=== PATIENT | male | born 1975 | race Caucasian/White ===

== ENCOUNTER 2019-03-06 20:48 | Emergency (ER) | payer OTHER ==
[~2019-03-06] VITALS: Ht 175.3 cm; Wt 140.6 kg
--- OUTSIDE RECORDS SUMMARY | 2019-03-06 20:56 | XMS REPORT | Continuity of Care Document ---
Author Organization Unknown Address Unknown Allergies Active Description Code Type Severity Reaction Onset Reported/Identified Relationship to Patient Clinical Status Yes DICLOFENAC SODIUM 08788 DRUG N/ A Other 06/11/2016 06/11/2016 Medications Medication Packaging Start Date Stop Date Route Dosage Sig KETOROLAC TROMETHAMINE 30 MG/ML IJ SOLN 06/11/2016 06/16/2016 Intravenous 15 ONCE Problems Date Dx Coded Attending Type Code Diagnosis Diagnosed By 06/11/2016 SHAI PUTNAM V [id number] Chest Pain SHAI PUTNAM 06/11/2016 SHAI PUTNAM V R07.81 Pleurodynia SHAI PUTNAM Procedures There is no data. Results Test Result Range CBC WITH AUTO DIFFERENTIAL - 06/11/16 16:25 BASOPHILS RELATIVE PERCENT 0.7 % 0.0-2.5 EOSINOPHILS RELATIVE PERCENT 1.1 % <=5.0 HEMATOCRIT 42.7 % 38.8-50.0 HEMOGLOBIN 14.3 g/dL 13.5-17.5 LYMPHOCYTES RELATIVE PERCENT 26.3 % 22.0-49.0 MEAN CORPUSCULAR HEMOGLOBIN 28.5 pg 26.0-34.0 MEAN CORPUSCULAR HEMOGLOBIN CONC 33.4 g/dL 31.0-37.0 MEAN CORPUSCULAR VOLUME 85.4 fL 81.2-95.1 MONOCYTES RELATIVE PERCENT 6.3 % 2.0-9.0 NEUTROPHILS RELATIVE PERCENT 65.6 % 40.0-75.0 PLATELET COUNT 264 10E9/L 150-450 RED BLOOD CELL COUNT 4.99 10E12/L 4.32-5.72 RED CELL DISTRIBUTION WIDTH 12.9 % 11.8-15.6 [id number] 8.9 10E9/L 3.5-10.5 [id number] 2.30 10E9/L 0.90-2.90 5510069 0.60 10E9/L 0.30-0.90 5521736 0.10 10E9/L 0.05-0.50 [id number] 5.80 10E9/L 1.70-7.00 4366776 0.10 10E9/L 0.00-0.30 COMPREHENSIVE METABOLIC PANEL - 06/11/16 16:25 ALBUMIN 4.2 g/dL 3.4-4.8 ALKALINE PHOSPHATASE 91 U/L 29-122 ALT 31 U/L 10-46 AST 18 U/L 16-37 BILIRUBIN,TOTAL 0.4 mg/dL 0.2-1.3 BUN BLOOD 15 mg/dL 6-20 CALCIUM 9.8 mg/dL 8.7-10.5 CHLORIDE 107 mmol/L 99-111 CO2 30 mmol/L 20-36 CREATININE 0.90 mg/dL 0.60-1.20 EGFR > mL/min >59 GLUCOSE 289 mg/dL 74-106 POTASSIUM 4.3 mmol/L 3.6-4.9 PROTEIN TOTAL 7.0 g/dL 6.4-8.3 SODIUM 141 mmol/L 136-145 CK TOTAL AND CKMB - 06/11/16 16:25 CKMB/CPK INDEX 1.4 <=5.0 CPK 223 U/L 38-174 CPK-MB 3.1 ng/mL 0.0-4.0 TROPONIN I - 06/11/16 16:25 TROPONIN I < ng/mL 0.000-0.040 EXTRA LIGHT BLUE TOP - 06/11/16 16:25 1324 Extra tube in lab Encounters ACCT No. Visit Date/Time Discharge Status Pt. Type Provider Facility Loc./Unit Complaint [id number] 06/11/2016 17:10:43 06/11/2016 19:06:00 DIS Emergency LOKI-SHAI PALACIOS [facility] EMD [id number] 06/11/2016 17:44:11 Document Registration
--- NOTE | 2019-03-06 21:04 | ED Chest Pain ---
General Stated Complaint: CHEST REYNA Source: patient, RN notes reviewed Exam Limitations: no limitations History of Present Illness Date Seen by Provider: March 06, 2019 Time Seen by Provider: 21:04 Allergies and Home Medications Allergies Uncoded Allergies: PENICILLIN (Allergy, Unknown, 03/06/19) Home Medications No Active Prescriptions or Reported Meds Past [id number]-Gqqidb-[id number] Hx Patient Social History Recent Foreign Travel: No Contact w/Someone Who Travel: No Physical Exam Vital Signs Vital Signs - First Documented 03/06/19 21:07 Temp 98.3 Pulse 88 Resp 15 B/P (MAP) 160/92 (114) Pulse Ox 96 O2 Delivery Room Air Capillary Refill : Height, Weight, BMI Height: '" Weight: lbs. oz. kg; BMI Method: Progress/Results/Core Measures Results/Orders Lab Results Laboratory Tests Test 03/06/19 21:10 03/06/19 23:20 Range/Units White Blood Count 7.3 4.3-11.0 10^3/uL Red Blood Count 5.25 4.35-5.85 10^6/uL Hemoglobin 15.3 13.3-17.7 G/DL Hematocrit 45 40-54 % Mean Corpuscular Volume 85 80-99 FL Mean Corpuscular Hemoglobin 29 25-34 PG Mean Corpuscular Hemoglobin Concent 34 32-36 G/DL Red Cell Distribution Width 12.5 10.0-14.5 % Platelet Count 254 130-400 10^3/uL Mean Platelet Volume 10.9 H 7.4-10.4 FL Neutrophils (%) (Auto) 58 42-75 % Lymphocytes (%) (Auto) 34 12-44 % Monocytes (%) (Auto) 6 0-12 % Eosinophils (%) (Auto) 1 0-10 % Basophils (%) (Auto) 1 0-10 % Neutrophils # (Auto) 4.2 1.8-7.8 X 10^3 Lymphocytes # (Auto) 2.5 1.0-4.0 X 10^3 Monocytes # (Auto) 0.5 0.0-1.0 X 10^3 Eosinophils # (Auto) 0.1 0.0-0.3 10^3/uL Basophils # (Auto) 0.1 0.0-0.1 10^3/uL Sodium Level 138 135-145 MMOL/L Potassium Level 4.1 3.6-5.0 MMOL/L Chloride Level 101 98-107 MMOL/L Carbon Dioxide Level 21 21-32 MMOL/L Anion Gap 16 H 5-14 MMOL/L Blood Urea Nitrogen 9 7-18 MG/DL Creatinine 0.63 0.60-1.30 MG/DL Estimat Glomerular Filtration Rate > 60 BUN/Creatinine Ratio 14 Glucose Level 310 H 70-105 MG/DL Calcium Level 9.4 8.5-10.1 MG/DL Corrected Calcium 9.4 8.5-10.1 MG/DL Magnesium Level 2.1 1.8-2.4 MG/DL Total Bilirubin 0.5 0.1-1.0 MG/DL Aspartate Amino Transf (AST/SGOT) 17 5-34 U/L Alanine Aminotransferase (ALT/SGPT) 28 0-55 U/L Alkaline Phosphatase 82 40-136 U/L Troponin T 9 < 6 <=15 NG/L Total Protein 7.3 6.4-8.2 GM/DL Albumin 4.0 3.2-4.5 GM/DL Lipase 19 8-78 U/L My Orders Orders - TOMI ISRAEL DO Cbc With Automated Diff (03/06/19 21:07) Magnesium (03/06/19 21:07) Chest 1 View Ap/Pa Only (03/06/19 21:07) Ekg Tracing (03/06/19 21:07) Comprehensive Metabolic Panel (03/06/19 21:07) Monitor-Rhythm Ecg Trace Only (03/06/19 21:07) Ed Iv/Invasive Line Start (03/06/19 21:07) Lipase (03/06/19 21:07) Troponin T (03/06/19 21:07) Hemoglobin A1c (03/06/19 21:56) Famotidine Tablet (Pepcid Tablet) (03/06/19 22:15) Ketorolac Injection (Toradol Injection) (03/06/19 22:15) Troponin T (03/06/19 23:10) Ketorolac Injection (Toradol Injection) (03/06/19 22:19) Troponin T (03/06/19 23:24) Medications Given in ED Current Medications Medications Dose Ordered Sig/Niels Route Start Time Stop Time Status Last Admin Dose Admin Famotidine 40 mg ONCE ONCE PO 03/06/19 22:15 03/06/19 22:16 DC 03/06/19 22:29 40 MG Ketorolac Tromethamine 15 mg ONCE ONCE IVP 03/06/19 22:15 03/06/19 22:16 DC 03/06/19 22:28 15 MG Vital Signs/I&O 03/06/19 21:07 Temp 98.3 Pulse 88 Resp 15 B/P (MAP) 160/92 (114) Pulse Ox 96 O2 Delivery Room Air Departure Impression Primary Impression: Non-cardiac chest pain Additional Impressions: Gastitis vs PUD Hyperglycemia Disposition: 21 DIS/XFER COURT/LAW [employer] Condition: Stable Departure-Patient Inst. Decision time for Depature: 00:04 Referrals: NO,LOCAL PHYSICIAN (PCP/Family) Primary Care Physician Patient Instructions: Chest Pain That Is Not Caused by the Heart (DC), Gastritis (DC), Ulcer and Gastritis Diet, Hyperglycemia, Adult (DC) Add. Discharge Instructions: GOING TO NEED FOLLOW UP EVALUATION AND TREATMENT OF HIS ELEVATED BLOOD SUGAR. MAY NEED REFERRAL FOR A SCOPE OF HIS STOMACH IF HIS SYMPTOMS CONTINUE. Scripts Famotidine (Pepcid) 20 Mg Tablet 20 MG PO BID for 30 Days, #60 TAB 0 Refills Prov: TOMI ISRAEL DO 03/07/19 TOMI ISRAEL DO March 06, 2019 21:04
[2019-03-06 21:24] LABS: BASOPHILS % (AUTO) 1 % (0-10); EOSINOPHILS % (AUTO) 1 % (0-10); HEMATOCRIT 45 % (40-54); HEMOGLOBIN 15.3 G/DL (13.3-17.7); LYMPHOCYTES # (AUTO) 2.5 X 10^3 (1.0-4.0); LYMPHOCYTES % (AUTO) 34 % (12-44); MEAN CORPUSCULAR HEMOGLOBIN 29 PG (25-34); MEAN CORPUSCULAR HGB CONC 34 G/DL (32-36); MEAN CORPUSCULAR VOLUME 85 FL (80-99); MEAN PLATELET VOLUME 10.9 FL (7.4-10.4); MONOCYTES # (AUTO) 0.5 X 10^3 (0.0-1.0); MONOCYTES % (AUTO) 6 % (0-12); NEUTROPHILS # (AUTO) 4.2 X 10^3 (1.8-7.8); NEUTROPHILS % (AUTO) 58 % (42-75); PLATELET COUNT 254 10^3/uL (130-400); RED CELL DISTRIBUTION WIDTH 12.5 % (10.0-14.5); WHITE BLOOD COUNT 7.3 10^3/uL (4.3-11.0)
--- NOTE | 2019-03-06 21:24 | Diagnostic Imaging Report ---
INDICATION: Chest pain and tightness. EXAMINATION: Frontal view of the chest was obtained at 8:59 p.m. FINDINGS: Heart and mediastinal silhouette are normal in appearance. The lungs are clear. There is no pneumothorax or pleural fluid. IMPRESSION: Negative chest. Dictated by: Dictated on workstation # [id number]
[2019-03-06 21:25] LABS: BASOPHILS # (AUTO) 0.1 10^3/uL (0.0-0.1); EOSINOPHILS # (AUTO) 0.1 10^3/uL (0.0-0.3)
[2019-03-06 21:49] LABS: BUN/CREATININE RATIO 14; CARBON DIOXIDE 21 MMOL/L (21-32); CHLORIDE 101 MMOL/L (98-107); CREATININE SERUM 0.63 MG/DL (0.60-1.30); GFR ESTIMATED > 60; GLUCOSE 310 MG/DL (70-105); POTASSIUM 4.1 MMOL/L (3.6-5.0); SODIUM 138 MMOL/L (135-145)
[2019-03-06 21:50] LABS: ALANINE AMINOTRANSFERASE 28 U/L (0-55); ALKALINE PHOSPHATASE 82 U/L (40-136); BILIRUBIN,TOTAL 0.5 MG/DL (0.1-1.0); CALCIUM 9.4 MG/DL (8.5-10.1); LIPASE 19 U/L (8-78); MAGNESIUM 2.1 MG/DL (1.8-2.4); TOTAL PROTEIN 7.3 GM/DL (6.4-8.2)
[2019-03-06] MEDS ORDERED: KETOROLAC 15 MG/ML VIAL IVP ONE (22:15)
[2019-03-06] MEDS ORDERED: FAMOTIDINE 20 MG (PEPCID) TABLET PO ONE (22:15)
[2019-03-06] MEDS ORDERED: KETOROLAC 30 MG/ML VIAL ONE (22:19)
[2019-03-07] MEDS ORDERED: FAMO-119 PO (00:06)
[2019-03-07] MEDS ORDERED: DEXAMETHASONE 4 MG/ML SDV (DECADRON) IV ONE (00:15)
[2019-03-07] MEDS ORDERED: DEXAMETHASONE 10 MG/ML (DECADRON) 1 ML VIAL IM ONE (00:15)
[2019-03-07 00:17] VITALS: BP 156/85
== END 2019-03-07 00:17 ==
LOC: ER FS 20:52
DX: R07.9 Chest pain, unspecified (principal); R73.9 Hyperglycemia, unspecified; Z88.0 Allergy status to penicillin
CPT/HCPCS: 36415; 71045; 80053; 83036; 83690; 83735; 84484; 85025; 93005